=== PATIENT | female | born 1935 | race Caucasian/White ===

== ENCOUNTER 2022-06-23 12:40 | Emergency (ER) | payer MEDICARE, OTHER ==
[~2022-06-23] VITALS: Ht 139.7 cm; Wt 70.3 kg
--- NOTE | 2022-06-23 12:52 | NUR ---
DR HINSON AT BEDSIDE
--- NOTE | 2022-06-23 13:09 | NUR ---
URINE SAMPLE COLLECTED AND SENT TO LAB
--- NOTE | 2022-06-23 13:11 | NUR ---
RAPID COVID SWAB DONE AND SENT TO LAB
[2022-06-23 13:19] LABS: BASOPHILS # (AUTO) 0.1 K/uL (0.0-0.2); BASOPHILS % (AUTO) 0.6 % (0.0-2.0); EOSINOPHILS % (AUTO) 2.6 % (0.0-6.0); HEMATOCRIT 39 % (33-45); HEMOGLOBIN 12.4 g/dL (11.5-14.8); LYMPHOCYTES # (AUTO) 1.9 K/uL (0.8-4.8); LYMPHOCYTES % (AUTO) 20.2 % (20.0-44.0); MEAN CORPUSCULAR HGB CONC 32 g/dl (31.0-36.0); MEAN CORPUSCULAR VOLUME 94 fL (82-100); MONOCYTES # (AUTO) 1.1 K/uL (0.1-1.30); MONOCYTES % (AUTO) 11.9 % (2.0-12.0); NEUTROPHILS # (AUTO) 6.1 K/uL (1.8-8.9); NEUTROPHILS % (AUTO) 64.7 % (43.0-81.0); PLATELET COUNT (AUTO) 364 K/uL (150-450); RED BLOOD CELL COUNT(AUTO) 4.14 MIL/uL (4.0-5.2); WHITE BLOOD COUNT (AUTO) 9.4 K/uL (4.3-11.0)
[2022-06-23 13:32] LABS: ALANINE AMINOTRANSFERASE 35 U/L (12-78); ALBUMIN 3.6 g/dL (3.4-5.0); ALKALINE PHOSPHATASE 84 U/L (46-116); ASPARTATE AMINOTRANSFERASE 25 U/L (15-37); BILIRUBIN,DIRECT 0.1 mg/dL (0.0-0.2); BILIRUBIN,TOTAL 0.2 mg/dL (0.2-1.0); CALCIUM, SERUM 9.1 mg/dL (8.5-10.1); CARBON DIOXIDE 29 mmol/L (21-32); CHLORIDE 92 mmol/L (98-107); CREATININE 0.8 mg/dL (0.6-1.3); GLUCOSE 117 mg/dL (74-106); POTASSIUM 4.4 mmol/L (3.5-5.1); SODIUM SERUM 126 mmol/L (136-145); TOTAL PROTEIN, SERUM 6.8 g/dL (6.4-8.2); UREA NITROGEN, BLOOD 15 mg/dL (7-18)
[2022-06-23 13:33] LABS: ACETAMINOPHEN < 10 ug/ml (10-30); ALCOHOL, BLOOD < 3 mg/dL (0-0)
[2022-06-23 13:34] LABS: BILIRUBIN,URINE NEGATIVE (NEGATIVE); COLOR,URINE YELLOW (YELLOW); LEUKOCYTE ESTERASE ,URINE 2+ (NEGATIVE); NITRITE, URINE NEGATIVE (NEGATIVE); PROTEIN,URINE NEGATIVE (NEGATIVE); UGLUCOSE NEGATIVE (NEGATIVE); UROBILINOGEN,URINE 0.2 EU/dL (0.2)
[2022-06-23 14:04] LABS: BACTERIA,URINE Many /HPF (None Seen); SQUAMOUS EPITHELIAL CELL,UR Few /HPF (None Seen)
--- NOTE | 2022-06-23 14:51 | NUR ---
CALLED [facility] ON [address].
--- NOTE | 2022-06-23 14:59 | NUR ---
MOVE SHEET SUBMITTED.
--- NOTE | 2022-06-23 15:09 | NUR ---
waiting for crisis evaluation
[2022-06-23] MEDS ORDERED: PARO10TA4 PO (16:11)
[2022-06-23] MEDS ORDERED: AMLO-213 PO (16:11)
[2022-06-23] MEDS ORDERED: LORA-258 PO (16:11)
[2022-06-23] MEDS ORDERED: MIRT-90 PO (16:11)
[2022-06-23] MEDS ORDERED: HYDR12.55 PO (16:11)
[2022-06-23] MEDS ORDERED: LISI40TA13 PO (16:11)
[2022-06-23] MEDS ORDERED: HALO0.5T2 PO (16:11)
[2022-06-23] MEDS ORDERED: MELA1TAB27 PO (16:36)
[2022-06-23] MEDS: HALOPERIDOL 1 MG TABLET PO ONE (16:41)
[2022-06-23 16:52] VITALS: BP 139/70
--- NOTE | 2022-06-23 16:52 | NUR ---
Patient discharged to home with son in stable condition. Written and verbal after care instructions given. Son verbalizes understanding of instruction.
== END 2022-06-23 16:53 | disposition home or self-care (01) ==
LOC: ER 13:34
DX: F03.90 Unspecified dementia, unspecified severity, without behavioral disturbance, psychotic disturbance, mood disturbance, and anxiety (principal); F05 Delirium due to known physiological condition; F23 Brief psychotic disorder; I10 Essential (primary) hypertension
CPT/HCPCS: 36415; 71045-TC; 80048-TC; 80076-TC; 81001; 85025-TC; 87086-TC; C9803; G0480